=== PATIENT | female | born 1960 | race Caucasian/White ===

== ENCOUNTER 2022-03-28 02:12 | Emergency (ER) | payer MEDICAID, OTHER ==
[~2022-03-28] VITALS: Ht 165.1 cm; Wt 81.6 kg
[2022-03-28 03:55] LABS: Basophils # (auto) 0 10 ^3/uL (0-0.2); Eosinophils # (auto) 0.3 10 ^3/uL (0-0.8); Hemoglobin 11.8 g/dL (12.2-16.2); Lymphocytes # (auto) 1.9 10 ^3/uL (0.4-5.4); Monocytes # (auto) 0.5 10 ^3/uL (0-1.3); Red Cell Distribution Width 15.2 % (11.8-14.3)
[2022-03-28 03:56] LABS: Basophils % (auto) 0.4 % (0.0-2.0); Eosinophils % (auto) 3.8 % (0.0-7.0); Hematocrit 36.4 % (36.0-46.0); Lymphocytes % (auto) 24.5 % (10.0-50.0); Mean Corpuscular Hgb Conc. 32.3 g/dL (32.0-36.0); Mean Corpuscular Volume 83.4 fL (80.0-100.0); Monocytes % (auto) 6.9 % (0.0-12.0); Neutrophils % (auto) 64.4 % (37.0-80.0); Red Blood Cells 4.36 10^6/uL (4.0-5.20); White Blood Cell 7.8 10^3/uL (4.4-10.8)
[2022-03-28 04:13] LABS: INR 0.99 (0.9-1.15); Partial Thromboplastin Time 29.1 sec (23.6-33.0)
[2022-03-28 04:14] LABS: Albumin 2.7 g/dL (3.4-5.0); Calcium 8.5 mg/dL (8.5-10.1); Potassium 3.7 mmol/L (3.5-5.1)
[2022-03-28 04:17] LABS: BUN/Creatinine Ratio 22.5
[2022-03-28 04:20] LABS: Bilirubin, Total 0.2 mg/dL (0.2-1.0); Total Protein 7.6 g/dL (6.4-8.2)
[2022-03-28] MEDS ORDERED: VANCOMYCIN 1GM/250ML 250 ML IV ONE (04:30)
[2022-03-28] MEDS ORDERED: PIPERACILLIN-TAZOB 3.375GM 100 ML IV ONE (04:30)
[2022-03-28] MEDS ORDERED: HYDROcodone-ACET 5/325MG TAB PO ONE (04:30)
[2022-03-28] MEDS ORDERED: IBUPROFEN 800 MG TAB PO ONE (05:00)
[2022-03-28] MEDS ORDERED: IBUPROFEN 400 MG TAB PO ONE ×2 (13:00→20:30)
[2022-03-28 19:21] VITALS: BP 119/55
== END 2022-03-28 20:34 | disposition left against medical advice (07) ==
LOC: ER 02:12 → EDBD 02:12 → ER 20:34
DX: L03.116 Cellulitis of left lower limb (principal); F17.210 Nicotine dependence, cigarettes, uncomplicated
CPT/HCPCS: 36415; 73700; 80053; 83605; 85025; 85610; 85652; 85730; 86141; 86850; 86900; 86901; 93971; 96365; 96366; 96367; 99285; J2543; J3370